=== PATIENT | male | born 1990 | race Caucasian/White ===

== ENCOUNTER 2018-05-21 06:47 | Observation (INO) | payer BC ==
[2018-05-21] MEDS ORDERED: Sodium Chloride 0.9% 1,000 ML IV ONE (07:00)
[2018-05-21] MEDS ORDERED: Ondansetron 4 MG/2 ML SDV IVPUSH ONE ×2 (07:00→09:55)
--- NOTE | 2018-05-21 07:01 | EDM.PDOC ---
ED HPI GENERAL MEDICAL PROBLEM - General Chief Complaint: Abdominal Pain Stated Complaint: STOMACH PAINS Time Seen by Provider: 05/21/18 07:01 Source of Information: Reports: Patient - History of Present Illness INITIAL COMMENTS - FREE TEXT/NARRATIVE: HISTORY AND PHYSICAL: History of present illness: [Patient presents with right lower quadrant pain 6 out of 10 nonradiating no fever vomiting chills sweats ] Review of systems: As per history of present illness and below otherwise all systems reviewed and negative. Past medical history: As per history of present illness and as reviewed below otherwise noncontributory. Surgical history: As per history of present illness and as reviewed below otherwise noncontributory. Social history: No reported history of drug or alcohol abuse. Family history: As per history of present illness and as reviewed below otherwise noncontributory. Physical exam: HEENT: Atraumatic, normocephalic, pupils reactive, negative for conjunctival pallor or scleral icterus, mucous membranes moist, throat clear, neck supple, nontender, trachea midline. Lungs: Clear to auscultation, breath sounds equal bilaterally, chest nontender. Heart: S1S2, regular, negative for clicks, rubs, or JVD. Abdomen: Soft, nondistendtender in right lower quadrant with guarding and rebound for masses or hepatosplenomegaly. Negative for costovertebral tenderness. Pelvis: Stable nontender. Genitourinary: Deferred. Rectal: Deferred. Extremities: Atraumatic, negative for cords or calf pain. Neurovascular unremarkable. Neuro: Awake, alert, oriented. Cranial nerves II through XII unremarkable. Cerebellum unremarkable. Motor and sensory unremarkable throughout. Exam nonfocal. Diagnostics: [CBC CMP UA lipase ] Therapeutics: [Liter normal saline bolus Zofran 8 mg IV ] Dr. Lazar is platform operations director and will be done see the patient shortly Impression: Acute appendicitis definitive disposition and diagnosis as appropriate pending reevaluation and review of above. Abdomen Pain Score (Numeric/FACES): 6 - Related Data Allergies Allergy/AdvReac Type Severity Reaction Status Date / Time No Known Allergies Allergy Verified 05/21/18 06:59 Home Meds: Home Meds . [No Known Home Meds] 05/21/18 [History] ED ROS GENERAL - Review of Systems Review Of Systems: See Below ED EXAM, GENERAL - Physical Exam Exam: See Below Course - Vital Signs Last Recorded V/S: Last Vital Signs Temp 97.4 F 05/21/18 07:00 Pulse 69 05/21/18 07:00 Resp 18 05/21/18 07:00 BP 114/69 05/21/18 07:00 Pulse Ox 98 05/21/18 07:00 - Orders/Labs/Meds Orders: Active Orders 24 hr Category Date Time Status UA W/MICROSCOPIC [URIN] Stat Lab 05/21/18 09:00 Ordered Labs: Laboratory Tests 05/21/18 05/21/18 Range/Units 07:10 07:10 WBC 15.70 H (4.0-11.0) K/uL RBC 5.17 (4.50-5.90) M/uL Hgb 15.5 (13.0-17.0) g/dL Hct 44.1 (38.0-50.0) % MCV 85.3 (80.0-98.0) fL MCH 30.0 (27.0-32.0) pg MCHC 35.1 (31.0-37.0) g/dL RDW Std Deviation 39.1 (28.0-62.0) fl RDW Coeff of Sabino 13 (11.0-15.0) % Plt Count 218 (150-400) K/uL MPV 11.60 (7.40-12.00) fL Neut % (Auto) 73.5 (48.0-80.0) % Lymph % (Auto) 19.6 (16.0-40.0) % [place] % (Auto) 6.4 (0.0-15.0) % Eos % (Auto) 0.3 (0.0-7.0) % Baso % (Auto) 0.2 (0.0-1.5) % Neut # (Auto) 11.6 H (1.4-5.7) K/uL Lymph # (Auto) 3.1 H (0.6-2.4) K/uL [place] # (Auto) 1.0 H (0.0-0.8) K/uL Eos # (Auto) 0.0 (0.0-0.7) K/uL Baso # (Auto) 0.0 (0.0-0.1) K/uL Nucleated RBC % 0.0 /100WBC Nucleated RBCs # 0 K/uL Sodium 139 (136-148) mmol/L Potassium 3.5 (3.5-5.1) mmol/L Chloride 102 (98-107) mmol/L Carbon Dioxide 26.4 (21.0-32.0) mmol/L BUN 18 (7.0-18.0) mg/dL Creatinine 1.0 (0.8-1.3) mg/dL Est Cr Clr Drug Dosing 106.40 mL/min Estimated GFR (MDRD) > 60.0 ml/min Glucose 120 H (74-106) mg/dL Calcium 9.3 (8.5-10.1) mg/dL Total Bilirubin 1.0 (0.2-1.0) mg/dL AST 16 (15-37) IU/L ALT 39 (14-63) IU/L Alkaline Phosphatase 81 (46-116) U/L Total Protein 7.5 (6.4-8.2) g/dL Albumin 4.6 (3.4-5.0) g/dL Globulin 2.9 (2.0-3.5) g/dL Albumin/Globulin Ratio 1.6 (1.3-2.8) Lipase 96 (73-393) U/L Meds: Medications Discontinued Medications Generic Name Dose Route Start Last Admin Trade Name Freq PRN Reason Stop Dose Admin Sodium Chloride 1,000 mls @ 999 mls/hr 05/21/18 07:00 05/21/18 07:30 Normal Saline IV 05/21/18 08:00 999 mls/hr STAT ONE Administration Iopamidol 100 ml 05/21/18 08:26 05/21/18 08:26 Isovue Multipack-370 (76%) IVPUSH 05/21/18 08:27 100 ml ONETIME STA Administration Morphine Sulfate 2 mg 05/21/18 07:42 05/21/18 07:55 Morphine IVPUSH 05/21/18 07:43 2 mg ONETIME ONE Administration Morphine Sulfate 4 mg 05/21/18 09:06 Morphine IVPUSH 05/21/18 09:07 ONETIME ONE Ondansetron HCl 8 mg 05/21/18 07:00 05/21/18 07:30 Zofran IVPUSH 05/21/18 07:01 8 mg ONETIME ONE Administration Departure - Departure Time of Disposition: 09:11 Disposition: Refer to Observation Condition: Fair Clinical Impression: Appendicitis - Discharge Information Referrals: PCP,None [Primary Care Provider] - Forms: ED Department Discharge - My Orders Last 24 Hours: My Active Orders 05/21/18 09:00 UA W/MICROSCOPIC [URIN] Stat - Assessment/Plan Last 24 Hours: My Active Orders 05/21/18 09:00 UA W/MICROSCOPIC [URIN] Stat
[2018-05-21] MEDS ORDERED: Morphine 2 MG/ML Syringe IVPUSH ONE ×2 (07:42→09:22)
[2018-05-21 07:48] LABS: CHLORIDE,CL 102 mmol/L (98-107); SODIUM,NA 139 mmol/L (136-148)
[2018-05-21] MEDS ORDERED: Iopamidol 755 MG/ML 500 ML Multipack Bottle IVPUSH STA (08:26)
--- NOTE | 2018-05-21 09:05 | CT ---
CT of the abdomen and pelvis with contrast. HISTORY: Pain TECHNIQUE: Axial CT images were obtained of the abdomen and pelvis following administration of 100 mL of Isovue-370 in the right antecubital fossa without complication. Coronal and sagittal reconstructi ons obtained. FINDINGS: The lung bases are clear, no pleural effusion. The liver, spleen, adrenal glands, and pancreas appear normal. The gallbladder is normal. There is no bulky retroperitoneal lymphadenopathy or abdominal ascites. The kidneys enhance and function symmetrically without evidence of obstructive uropathy. The large and small bowel are normal in caliber without evidence of obstruction. No focal pericolonic inflammation or stranding. The appendix is dilated with adjacent stranding. No free air identified. The urinary bladder is normal. No bulky pelvic lymphadenopathy or significant free pelvic fluid. Visualized osseous structures appear normal. IMPRESSION: 1. Appendicitis without evidence of rupture.
[2018-05-21] MEDS ORDERED: Morphine 4 MG/ML Syringe IVPUSH ONE (09:06)
[2018-05-21] MEDS ORDERED: Morphine 2 MG/ML Syringe ONE (09:21)
[2018-05-21] MEDS ORDERED: Sodium Chloride 0.9% 1,000 ML IV SCH (09:30)
[2018-05-21] MEDS ORDERED: cefOXitin 2 GM in Premix Bag 1 BAG IV ONE (09:39)
[2018-05-21] MEDS ORDERED: Ondansetron 4 MG/2 ML SDV ONE (09:53)
[2018-05-21] MEDS ORDERED: Propofol 200 MG/20 ML SDV ONE (09:53)
[2018-05-21] MEDS ORDERED: Lidocaine 2% 5 ML SDV ONE (09:53)
[2018-05-21] MEDS ORDERED: Rocuronium 10 MG/ML 10 ML Syringe ONE (09:53)
[2018-05-21] MEDS ORDERED: Succinylcholine 200 MG/10 ML MDV ONE (09:53)
[2018-05-21] MEDS ORDERED: Midazolam 1 MG/ML 2 ML SDV ONE (09:54)
[2018-05-21] MEDS ORDERED: fentaNYL 250 MCG/5 ML SDV ONE (09:54)
[2018-05-21] MEDS ORDERED: ceFAZolin 1 GM Vial ONE (09:58)
[2018-05-21] MEDS ORDERED: Bupivacaine 0.5% 10 ML SDV ONE (09:58)
--- NOTE | 2018-05-21 09:58 | PCM.CONS ---
<Kal Campa - Last Filed: 05/21/18 09:53> H&P History of Present Illness - General Date of Service: 05/21/18 Admit Problem/Dx: abdominal pain, acute appendicitis Source of Information: Patient History Limitations: Reports: No Limitations - History of Present Illness Initial Comments - Free Text/Narative: Patient started having abdominal pain around 0200 this morning (8hrs ago). It was associated with diarrhea and nausea. He forced himself to vomit. The pain was located in the middle of the abdomen and then moved to the right side. He presented to the ED where he was found to have a leukocytosis to 15.[address] evidence of acute appendicitis. Surgery was consulted. The patient recalls that he has had similar symptoms before but never this bad. He denies any major health problems but has been short of breath at times recently. Underwent an ORIF of the left forearm several years ago. Did not report problems with anesthesia. No prior abdominal surgery. His last meal was around midnight. He drinks socially. No tobacco use. He does not report taking any regular medications. Onset of Symptoms: Reports: Today Symptom Onset Date: 05/21/18 Symptom Onset Time: 02:00 Duration of Symptoms: Reports: Getting Worse Location: Reports: Abdomen Improves with: Reports: Rest Worsens with: Reports: Movement Associated Symptoms: Reports: Nausea/Vomiting, Other (diarrhea) Abdomen Pain Score (Numeric/FACES): 6 - Related Data Allergies/Adverse Reactions: Allergies Allergy/AdvReac Type Severity Reaction Status Date / Time No Known Allergies Allergy Verified 05/21/18 06:59 Home Medications: Home Meds . [No Known Home Meds] 05/21/18 [History] Past Medical History HEENT History: Reports: None Cardiovascular History: Reports: None Respiratory History: Reports: None Gastrointestinal History: Reports: None Genitourinary History: Reports: None Musculoskeletal History: Reports: None Neurological History: Reports: None Psychiatric History: Reports: None Endocrine/Metabolic History: Reports: None Hematologic History: Reports: None Immunologic History: Reports: None Oncologic (Cancer) History: Reports: None Dermatologic History: Reports: None - Infectious Disease History Infectious Disease History: Reports: None - Past Surgical History Musculoskeletal Surgical History: Reports: Other (See Below) Other Musculoskeletal Surgeries/Procedures:: left hand surgery Social & Family History - Family History Family Medical History: Noncontributory - Tobacco Use Smoking Status *Q: Never Smoker - Caffeine Use Caffeine Use: Reports: Coffee - Recreational Drug Use Recreational Drug Use: No H&P Review of Systems - Review of Systems: Review Of Systems: See Below General: Reports: Malaise HEENT: Reports: No Symptoms Pulmonary: Reports: Shortness of Breath Cardiovascular: Reports: No Symptoms, Other. Denies: Blood Pressure Problem (.) Gastrointestinal: Reports: Abdominal Pain, Diarrhea, Nausea Genitourinary: Reports: No Symptoms Musculoskeletal: Reports: No Symptoms Skin: Reports: No Symptoms Psychiatric: Reports: No Symptoms Neurological: Reports: No Symptoms Hematologic/Lymphatic: Reports: No Symptoms Immunologic: Reports: No Symptoms Review of Systems Comment:: . Exam - Exam Exam: See Below - Vital Signs Vital Signs: Last Vital Signs Temp 97.4 F 05/21/18 07:00 Pulse 69 05/21/18 07:00 Resp 18 05/21/18 07:00 BP 114/69 05/21/18 07:00 Pulse Ox 98 05/21/18 07:00 Weight: 212 lb - Exam General: Alert, Oriented HEENT: Conjunctiva Clear, Hearing Intact Neck: Supple, Trachea Midline Lungs: Clear to Auscultation, Normal Respiratory Effort Cardiovascular: Regular Rate, Regular Rhythm GI/Abdominal Exam: Tender (Male) Exam: Deferred Rectal (Males) Exam: Deferred Back Exam: Full Range of Motion Extremities: Non-Tender, Normal Capillary Refill Peripheral Pulses: 2+: Radial (L), Radial (R) Skin: Warm, Dry Neurological: Normal Speech, Sensation Intact Neuro Extensive - Mental Status: Alert, Oriented x3 Neuro Extensive - Motor, Sensory, Reflexes: CN II-XII Intact Psychiatric: Alert, Normal Affect, Normal Mood - Patient Data Lab Results Last 24 hrs: Laboratory Results - last 24 hr 05/21/18 05/21/18 05/21/18 Range/Units 07:10 07:10 09:00 WBC 15.70 H (4.0-11.0) K/uL RBC 5.17 (4.50-5.90) M/uL Hgb 15.5 (13.0-17.0) g/dL Hct 44.1 (38.0-50.0) % MCV 85.3 (80.0-98.0) fL MCH 30.0 (27.0-32.0) pg MCHC 35.1 (31.0-37.0) g/dL RDW Std Deviation 39.1 (28.0-62.0) fl RDW Coeff of Sabino 13 (11.0-15.0) % Plt Count 218 (150-400) K/uL MPV 11.60 (7.40-12.00) fL Neut % (Auto) 73.5 (48.0-80.0) % Lymph % (Auto) 19.6 (16.0-40.0) % [place] % (Auto) 6.4 (0.0-15.0) % Eos % (Auto) 0.3 (0.0-7.0) % Baso % (Auto) 0.2 (0.0-1.5) % Neut # (Auto) 11.6 H (1.4-5.7) K/uL Lymph # (Auto) 3.1 H (0.6-2.4) K/uL Rich # (Auto) 1.0 H (0.0-0.8) K/uL Eos # (Auto) 0.0 (0.0-0.7) K/uL Baso # (Auto) 0.0 (0.0-0.1) K/uL Nucleated RBC % 0.0 /100WBC Nucleated RBCs # 0 K/uL Sodium 139 (136-148) mmol/L Potassium 3.5 (3.5-5.1) mmol/L Chloride 102 (98-107) mmol/L Carbon Dioxide 26.4 (21.0-32.0) mmol/L BUN 18 (7.0-18.0) mg/dL Creatinine 1.0 (0.8-1.3) mg/dL Est Cr Clr Drug Dosing 106.40 mL/min Estimated GFR (MDRD) > 60.0 ml/min Glucose 120 H (74-106) mg/dL Calcium 9.3 (8.5-10.1) mg/dL Total Bilirubin 1.0 (0.2-1.0) mg/dL AST 16 (15-37) IU/L ALT 39 (14-63) IU/L Alkaline Phosphatase 81 (46-116) U/L Total Protein 7.5 (6.4-8.2) g/dL Albumin 4.6 (3.4-5.0) g/dL Globulin 2.9 (2.0-3.5) g/dL Albumin/Globulin Ratio 1.6 (1.3-2.8) Lipase 96 (73-393) U/L Urine Color YELLOW Urine Appearance CLEAR Urine pH 8.0 (5.0-8.0) Ur Specific Guild 1.015 (1.001-1.035) Urine Protein NEGATIVE (NEGATIVE) mg/dL Urine Glucose (UA) NEGATIVE (NEGATIVE) mg/dL Urine Ketones TRACE H (NEGATIVE) mg/dL Urine Occult Blood NEGATIVE (NEGATIVE) Urine Nitrite NEGATIVE (NEGATIVE) Urine Bilirubin NEGATIVE (NEGATIVE) Urine Urobilinogen 0.2 (<2.0) EU/dL Ur Leukocyte Esterase NEGATIVE (NEGATIVE) Urine RBC 0-1 (0-2/HPF) Urine WBC 0-1 (0-5/HPF) Ur Epithelial Cells RARE (NONE-FEW) Urine Bacteria RARE (NEGATIVE) Result Diagrams: 05/21/18 07:10 05/21/18 07:10 Imaging Impressions Last 24 hrs: CT abdomen/pelvis showed an inflamed appendix with no evidence of perforation. Consult PN Assessment/Plan (1) Appendicitis SNOMED Code(s): 37332560 Code(s): K37 - UNSPECIFIED APPENDICITIS Current Visit: Yes Qualifiers: Appendicitis type: acute appendicitis Problem List Initiated/Reviewed/Updated: Yes Plan: ASSESSMENT: 27 y/o male, otherwise healthy, who presents with acute appendicitis. PLAN: Discussed recommendations for laparoscopic, possible open, appendectomy for definitive treatment. Patient agreed to proceed. Discussed risks of bleeding, infection, bladder injury, possible need to convert to open procedure. Administer 2 g of cefoxitin in the ED Pain medications per ED once informed consent is signed. Patient agreed to be full code. Anticipate discharge to home tomorrow. <Michael Lazar - Last Filed: 05/21/18 10:24> H&P History of Present Illness - General Admit Problem/Dx: Admission Diagnosis/Problem Admission Diagnosis/Problem Appendicitis Exam - Vital Signs Vital Signs: Last Vital Signs Temp 97.4 F 05/21/18 07:00 Pulse 69 05/21/18 07:00 Resp 18 05/21/18 10:19 BP 114/69 05/21/18 07:00 Pulse Ox 98 05/21/18 10:19 - Exam GI/Abdominal Exam: Soft, No Distention, Rebound, Abnormal Bowel Sounds ( hypoactive). No: Guarding, Rigid - Patient Data Lab Results Last 24 hrs: Laboratory Results - last 24 hr 05/21/18 05/21/18 05/21/18 Range/Units 07:10 07:10 09:00 WBC 15.70 H (4.0-11.0) K/uL RBC 5.17 (4.50-5.90) M/uL Hgb 15.5 (13.0-17.0) g/dL Hct 44.1 (38.0-50.0) % MCV 85.3 (80.0-98.0) fL MCH 30.0 (27.0-32.0) pg MCHC 35.1 (31.0-37.0) g/dL RDW Std Deviation 39.1 (28.0-62.0) fl RDW Coeff of Sabino 13 (11.0-15.0) % Plt Count 218 (150-400) K/uL MPV 11.60 (7.40-12.00) fL Neut % (Auto) 73.5 (48.0-80.0) % Lymph % (Auto) 19.6 (16.0-40.0) % Rich % (Auto) 6.4 (0.0-15.0) % Eos % (Auto) 0.3 (0.0-7.0) % Baso % (Auto) 0.2 (0.0-1.5) % Neut # (Auto) 11.6 H (1.4-5.7) K/uL Lymph # (Auto) 3.1 H (0.6-2.4) K/uL [place] # (Auto) 1.0 H (0.0-0.8) K/uL Eos # (Auto) 0.0 (0.0-0.7) K/uL Baso # (Auto) 0.0 (0.0-0.1) K/uL Nucleated RBC % 0.0 /100WBC Nucleated RBCs # 0 K/uL Sodium 139 (136-148) mmol/L Potassium 3.5 (3.5-5.1) mmol/L Chloride 102 (98-107) mmol/L Carbon Dioxide 26.4 (21.0-32.0) mmol/L BUN 18 (7.0-18.0) mg/dL Creatinine 1.0 (0.8-1.3) mg/dL Est Cr Clr Drug Dosing 106.40 mL/min Estimated GFR (MDRD) > 60.0 ml/min Glucose 120 H (74-106) mg/dL Calcium 9.3 (8.5-10.1) mg/dL Total Bilirubin 1.0 (0.2-1.0) mg/dL AST 16 (15-37) IU/L ALT 39 (14-63) IU/L Alkaline Phosphatase 81 (46-116) U/L Total Protein 7.5 (6.4-8.2) g/dL Albumin 4.6 (3.4-5.0) g/dL Globulin 2.9 (2.0-3.5) g/dL Albumin/Globulin Ratio 1.6 (1.3-2.8) Lipase 96 (73-393) U/L Urine Color YELLOW Urine Appearance CLEAR Urine pH 8.0 (5.0-8.0) Ur Specific [place] 1.015 (1.001-1.035) Urine Protein NEGATIVE (NEGATIVE) mg/dL Urine Glucose (UA) NEGATIVE (NEGATIVE) mg/dL Urine Ketones TRACE H (NEGATIVE) mg/dL Urine Occult Blood NEGATIVE (NEGATIVE) Urine Nitrite NEGATIVE (NEGATIVE) Urine Bilirubin NEGATIVE (NEGATIVE) Urine Urobilinogen 0.2 (<2.0) EU/dL Ur Leukocyte Esterase NEGATIVE (NEGATIVE) Urine RBC 0-1 (0-2/HPF) Urine WBC 0-1 (0-5/HPF) Ur Epithelial Cells RARE (NONE-FEW) Urine Bacteria RARE (NEGATIVE) Result Diagrams: 05/21/18 07:10 05/21/18 07:10 Consult PN Assessment/Plan (1) Appendicitis SNOMED Code(s): 49402277 Code(s): K37 - UNSPECIFIED APPENDICITIS Current Visit: Yes Qualifiers: Appendicitis type: acute appendicitis Acute appendicitis type: with localized peritonitis Qualified Code(s): K35.3 - Acute appendicitis with localized peritonitis Problem List Initiated/Reviewed/Updated: Yes My Orders Last 24 Hours: My Active Orders 05/21/18 09:56 Insert Urinary Catheter [OM.PC] Timed Oxygen Therapy [RC] ASDIRECTED RT Incentive Spirometry [RC] Q1HWA Skin Preparation [RC] .PREOP Urinary Catheter Assessment [RC] ASDIRECTED Urinary Catheter Assessment [RC] ASDIRECTED Urinary Catheter Assessment [RC] ASDIRECTED Vital Signs [RC] PER UNIT ROUTINE Antiembolic Hose [OM.PC] Routine Resuscitation Status Routine 05/21/18 09:57 Patient Status [ADT] Routine 05/21/18 10:00 Lactated Ringers [Ringers, Lactated] 1,000 ml IV ASDIRECTED 05/21/18 Breakfast Nothing Per Oral Diet [DIET] Plan: Laparoscopic appendectomy, possible open appendectomy. Both operative procedures, along with the risks, including, but not limited to, bleeding, infection, pneumonia, deep venous thrombosis, pulmonary emboli, myocardial infarction, and adjacent organ injury have been reviewed with the patient who voices understanding, offers no questions and agrees to proceed.
--- NOTE | 2018-05-21 10:19 | PCM.PREANE ---
Preanesthetic Assessment - Procedure Proposed Procedure: Lap Appendectomy - Anesthesia/Transfusion/Family Hx Anesthesia History: Unknown Family History of Anesthesia Reaction: No Intubation History: Unknown - Review of Systems General: Chills Pulmonary: No Symptoms Cardiovascular: No Symptoms Gastrointestinal: Abdominal Pain, Nausea (all yesterday - no appetite) Neurological: No Symptoms Other: Reports: None - Physical Assessment NPO Status Date: 05/20/18 NPO Status Time: 12:00 O2 Sat by Pulse Oximetry: 98 Respiratory Rate: 18 Vital Signs: Last Vital Signs Temp 97.4 F 05/21/18 07:00 Pulse 69 05/21/18 07:00 Resp 18 05/21/18 07:00 BP 114/69 05/21/18 07:00 Pulse Ox 98 05/21/18 07:00 Height: 5 ft 8 in Weight: 212 lb ASA Class: 2E Mental Status: Alert & Oriented x3 Airway Class: Mallampati = 1 Dentition: Reports: Normal Dentition Thyro-Mental Finger Breadths: 3 Mouth Opening Finger Breadths: 3 ROM/Head Extension: Full Lungs: Clear to Auscultation, Normal Respiratory Effort Cardiovascular: Regular Rate, Regular Rhythm, No Murmurs Other: 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) - Lab Values: Laboratory Last Values WBC 15.70 K/uL (4.0-11.0) H 05/21/18 07:10 RBC 5.17 M/uL (4.50-5.90) 05/21/18 07:10 Hgb 15.5 g/dL (13.0-17.0) 05/21/18 07:10 Hct 44.1 % (38.0-50.0) 05/21/18 07:10 MCV 85.3 fL (80.0-98.0) 05/21/18 07:10 MCH 30.0 pg (27.0-32.0) 05/21/18 07:10 MCHC 35.1 g/dL (31.0-37.0) 05/21/18 07:10 RDW Std Deviation 39.1 fl (28.0-62.0) 05/21/18 07:10 RDW Coeff of Sabino 13 % (11.0-15.0) 05/21/18 07:10 Plt Count 218 K/uL (150-400) 05/21/18 07:10 MPV 11.60 fL (7.40-12.00) 05/21/18 07:10 Neut % (Auto) 73.5 % (48.0-80.0) 05/21/18 07:10 Lymph % (Auto) 19.6 % (16.0-40.0) 05/21/18 07:10 [place] % (Auto) 6.4 % (0.0-15.0) 05/21/18 07:10 Eos % (Auto) 0.3 % (0.0-7.0) 05/21/18 07:10 Baso % (Auto) 0.2 % (0.0-1.5) 05/21/18 07:10 Neut # (Auto) 11.6 K/uL (1.4-5.7) H 05/21/18 07:10 Lymph # (Auto) 3.1 K/uL (0.6-2.4) H 05/21/18 07:10 [place] # (Auto) 1.0 K/uL (0.0-0.8) H 05/21/18 07:10 Eos # (Auto) 0.0 K/uL (0.0-0.7) 05/21/18 07:10 Baso # (Auto) 0.0 K/uL (0.0-0.1) 05/21/18 07:10 Nucleated RBC % 0.0 /100WBC 05/21/18 07:10 Nucleated RBCs # 0 K/uL 05/21/18 07:10 Sodium 139 mmol/L (136-148) 05/21/18 07:10 Potassium 3.5 mmol/L (3.5-5.1) 05/21/18 07:10 Chloride 102 mmol/L (98-107) 05/21/18 07:10 Carbon Dioxide 26.4 mmol/L (21.0-32.0) 05/21/18 07:10 BUN 18 mg/dL (7.0-18.0) 05/21/18 07:10 Creatinine 1.0 mg/dL (0.8-1.3) 05/21/18 07:10 Est Cr Clr Drug Dosing 106.40 mL/min 05/21/18 07:10 Estimated GFR (MDRD) > 60.0 ml/min 05/21/18 07:10 Glucose 120 mg/dL (74-106) H 05/21/18 07:10 Calcium 9.3 mg/dL (8.5-10.1) 05/21/18 07:10 Total Bilirubin 1.0 mg/dL (0.2-1.0) 05/21/18 07:10 AST 16 IU/L (15-37) 05/21/18 07:10 ALT 39 IU/L (14-63) 05/21/18 07:10 Alkaline Phosphatase 81 U/L (46-116) 05/21/18 07:10 Total Protein 7.5 g/dL (6.4-8.2) 05/21/18 07:10 Albumin 4.6 g/dL (3.4-5.0) 05/21/18 07:10 Globulin 2.9 g/dL (2.0-3.5) 05/21/18 07:10 Albumin/Globulin Ratio 1.6 (1.3-2.8) 05/21/18 07:10 Lipase 96 U/L (73-393) 05/21/18 07:10 Urine Color YELLOW 05/21/18 09:00 Urine Appearance CLEAR 05/21/18 09:00 Urine pH 8.0 (5.0-8.0) 05/21/18 09:00 Ur Specific [place] 1.015 (1.001-1.035) 05/21/18 09:00 Urine Protein NEGATIVE mg/dL (NEGATIVE) 05/21/18 09:00 Urine Glucose (UA) NEGATIVE mg/dL (NEGATIVE) 05/21/18 09:00 Urine Ketones TRACE mg/dL (NEGATIVE) H 05/21/18 09:00 Urine Occult Blood NEGATIVE (NEGATIVE) 05/21/18 09:00 Urine Nitrite NEGATIVE (NEGATIVE) 05/21/18 09:00 Urine Bilirubin NEGATIVE (NEGATIVE) 05/21/18 09:00 Urine Urobilinogen 0.2 EU/dL (<2.0) 05/21/18 09:00 Ur Leukocyte Esterase NEGATIVE (NEGATIVE) 05/21/18 09:00 Urine RBC 0-1 (0-2/HPF) 05/21/18 09:00 Urine WBC 0-1 (0-5/HPF) 05/21/18 09:00 Ur Epithelial Cells RARE (NONE-FEW) 05/21/18 09:00 Urine Bacteria RARE (NEGATIVE) 05/21/18 09:00 - Allergies Allergies/Adverse Reactions: Allergies Allergy/AdvReac Type Severity Reaction Status Date / Time No Known Allergies Allergy Verified 05/21/18 06:59 - Blood Blood Available: No Product(s) Available: None - Anesthesia Plan Pre-Op Medication Ordered: Other (MS narcotic in ER for pain) - Acknowledgements Anesthesia Type Planned: General Anesthesia (GETA) Pt an Appropriate Candidate for the Planned Anesthesia: Yes Alternatives and Risks of Anesthesia Discussed w Pt/Guardian: Yes Pt/Guardian Understands and Agrees with Anesthesia Plan: Yes PreAnesthesia Questionnaire HEENT History: Reports: None Cardiovascular History: Reports: None Respiratory History: Reports: None Gastrointestinal History: Reports: None Genitourinary History: Reports: None Musculoskeletal History: Reports: None Neurological History: Reports: None Psychiatric History: Reports: None Endocrine/Metabolic History: Reports: None Hematologic History: Reports: None Immunologic History: Reports: None Oncologic (Cancer) History: Reports: None Dermatologic History: Reports: None - Infectious Disease History Infectious Disease History: Reports: None - Past Surgical History Musculoskeletal Surgical History: Reports: Other (See Below) Other Musculoskeletal Surgeries/Procedures:: left hand surgery - SUBSTANCE USE Smoking Status *Q: Never Smoker Recreational Drug Use History: No - HOME MEDS Home Medications: Home Meds . [No Known Home Meds] 05/21/18 [History] - CURRENT (IN HOUSE) MEDS Current Meds: Current Medications Sodium Chloride (Normal Saline) 1,000 mls @ 125 mls/hr IV STAT [facility] Last Admin: 05/21/18 10:00 Dose: 125 mls/hr Lactated Ringer's (Ringers, Lactated) 1,000 mls @ 125 mls/hr IV ASDIRECTED [facility] Discontinued Medications Bupivacaine HCl (Sensorcaine-Mpf 0.5%) Confirm Administered Dose 10 ml .ROUTE .STK-MED ONE Stop: 05/21/18 09:59 Cefazolin Sodium (Ancef) Confirm Administered Dose 1 gm .ROUTE .STK-MED ONE Stop: 05/21/18 09:59 Fentanyl (Sublimaze) Confirm Administered Dose 250 mcg .ROUTE .STK-MED ONE Stop: 05/21/18 09:55 Sodium Chloride (Normal Saline) 1,000 mls @ 999 mls/hr IV STAT ONE Stop: 05/21/18 08:00 Last Admin: 05/21/18 07:30 Dose: 999 mls/hr Cefoxitin Sodium 2 gm/ Premix 50 mls @ 100 mls/hr IV ONETIME ONE Stop: 05/21/18 10:08 Last Admin: 05/21/18 09:53 Dose: 100 mls/hr Iopamidol (Isovue Multipack-370 (76%)) 100 ml IVPUSH ONETIME STA Stop: 05/21/18 08:27 Last Admin: 05/21/18 08:26 Dose: 100 ml Lidocaine (Xylocaine-Mpf 2%) Confirm Administered Dose 5 ml .ROUTE .STK-MED ONE Stop: 05/21/18 09:54 Midazolam HCl (Versed 1 Mg/Ml) Confirm Administered Dose 2 mg .ROUTE .STK-MED ONE Stop: 05/21/18 09:55 Morphine Sulfate (Morphine) 2 mg IVPUSH ONETIME ONE Stop: 05/21/18 07:43 Last Admin: 05/21/18 07:55 Dose: 2 mg Morphine Sulfate (Morphine) 4 mg IVPUSH ONETIME ONE Stop: 05/21/18 09:07 Last Admin: 05/21/18 09:22 Dose: Not Given Morphine Sulfate (Morphine) 4 mg IVPUSH ONETIME ONE Stop: 05/21/18 09:23 Last Admin: 05/21/18 09:24 Dose: 4 mg Morphine Sulfate (Morphine) Confirm Administered Dose 4 mg .ROUTE .STK-MED ONE Stop: 05/21/18 09:22 Last Admin: 05/21/18 09:24 Dose: Not Given Ondansetron HCl (Zofran) 8 mg IVPUSH ONETIME ONE Stop: 05/21/18 07:01 Last Admin: 05/21/18 07:30 Dose: 8 mg Ondansetron HCl (Zofran) 4 mg IVPUSH ONETIME ONE Stop: 05/21/18 09:56 Last Admin: 05/21/18 09:59 Dose: 4 mg Ondansetron HCl (Zofran) Confirm Administered Dose 4 mg .ROUTE .STK-MED ONE Stop: 05/21/18 09:54 Propofol (Diprivan 20 Ml) Confirm Administered Dose 200 mg .ROUTE .STK-MED ONE Stop: 05/21/18 09:54 Rocuronium [place] (Zemuron) Confirm Administered Dose 100 mg .ROUTE .STK-MED ONE Stop: 05/21/18 09:54 Succinylcholine Chloride (Quelicin) Confirm Administered Dose 200 mg .ROUTE .STK -MED ONE Stop: 05/21/18 09:54
[2018-05-21] MEDS ORDERED: Glycopyrrolate 0.2 MG/ML SDV ONE ×2 (10:50→10:52)
[2018-05-21] MEDS ORDERED: ePHEDrine 50 MG/ML SDV ONE (10:54)
[2018-05-21] MEDS ORDERED: fentaNYL 100 MCG/2 ML SDV IVPUSH PRN (11:09)
[2018-05-21] MEDS ORDERED: fentaNYL 100 MCG/2 ML SDV ONE (11:14)
[2018-05-21] MEDS ORDERED: HYDROmorphone 2 MG/ML SDV ONE (11:33)
[2018-05-21] MEDS ORDERED: Sodium Chloride 0.9% 10 ML Syringe FLUSH PRN (11:47)
[2018-05-21] MEDS ORDERED: Sodium Chloride 0.9% 2.5 ML Syringe FLUSH PRN (11:47)
[2018-05-21] MEDS ORDERED: Morphine 4 MG/ML Syringe IVPUSH PRN (11:47)
[2018-05-21] MEDS ORDERED: Ondansetron 4 MG/2 ML SDV IVPUSH PRN (11:47)
--- NOTE | 2018-05-21 11:49 | PCM.OPNOTE ---
- General Post-Op/Procedure Note Date of Surgery/Procedure: 05/21/18 Operative Procedure(s): Laparoscopic appendectomy Pre Op Diagnosis: Acute abdomen Post-Op Diagnosis: Acute nonruptured retrocecal appendicitis Anesthesia Technique: General ET Tube (ASA IIE) Primary Surgeon: Michael Lazar Instrument Shop Supervisor: Kal Campa Fluid Replacement, Intraop: 1,100 EBL in mLs: 10 Condition: Good Free Text/Narrative:: DICTATION 146328 CPT CODE 88058
--- NOTE | 2018-05-21 12:47 | PCM.POSTAN ---
POST ANESTHESIA ASSESSMENT - MENTAL STATUS Mental Status: Alert, Oriented Free Text/Narrative:: states he feels much better than he did preop in ER when I saw him. To Rm 208. - RESPIRATORY Respiratory Status: Respiratory Rate WNL, Airway Patent, O2 Saturation Stable - CARDIOVASCULAR CV Status: Pulse Rate WNL, Blood Pressure Stable - GASTROINTESTINAL GI Status: No Symptoms - POST OP HYDRATION Hydration Status: Adequate & Stable
--- NOTE | 2018-05-21 13:18 | OR ---
SURGEON: Michael Lazar M.D. DATE OF PROCEDURE: 05/21/2018 OPERATION PERFORMED: Laparoscopic appendectomy. MANAGER BIOSTATISTICS: Dr. Golden, PGY2. ANESTHESIA: General endotracheal. ASA CLASSIFICATION: IIE. PREOPERATIVE DIAGNOSIS: Acute abdomen. POSTOPERATIVE DIAGNOSIS: Acute nonruptured retrocecal appendicitis. ESTIMATED BLOOD LOSS: 10 mL. INTRAOPERATIVE FLUID REPLACEMENT: 1100 mL of crystalloid. DESCRIPTION OF PROCEDURE: The patient was taken to the operating room and placed on the operating table in the supine position. Time-out was called for appropriate identification of the patient and procedure. Thigh-high TEDs and sequential compression boots were placed. Following satisfactory attainment of general endotracheal anesthesia, a Brooks catheter was placed in the patient's urinary bladder. The abdomen was prepped with DuraPrep solution and sterile drapes were applied. The skin incision just above the umbilicus was initially infiltrated with 0.5% Marcaine solution. The skin incision was made and deepened through the subcutaneous tissue obtaining hemostasis with the use of electrocautery. The Veress needle was introduced into the peritoneal cavity. Saline drop test was positive. Carbon dioxide pneumoperitoneum was established with the relief initially set at 13 cm of water and then increased to 15 cm of water. Once a satisfactory pneumoperitoneum was established, 5 mm camera and port were placed through the supraumbilical incision. Under camera vision, 12 mm suprapubic port was placed. The skin incision was preemptively infiltrated with 0.5% Marcaine solution. Hemostasis was obtained with the use of electrocautery. 12 mm port was placed through the suprapubic incision. The patient was now positioned with his head down and rolled to the left. Under camera vision, the appendix was examined and found to be in a retrocecal position. Appropriate site for the left lower quadrant port was identified. Again, the skin was infiltrated with 0.5% Marcaine solution. The skin incision was made and a 5 mm port was placed through this incision as well. The appendix was able to be gently mobilized and the mesoappendix was taken down with Harmonic scalpel. Once the appendix was completely mobilized, the appendix was ligated at its base using the Endo-ANNE-MARIE stapler with a blue load. The appendix was then placed in the retrieval bag. The right lower quadrant was then inspected for hemostasis. No bleeding was noted. The right lower quadrant was then irrigated with sterile saline solution and all fluid aspirated. The patient was now returned to a neutral position. Under camera vision, the 12 mm suprapubic port and retrieval pouch were removed. Under camera vision, the 5 mm left lower quadrant port was removed and finally the supraumbilical camera and port were removed. The wounds were inspected for hemostasis and small bleeding sites were electrocoagulated. The suprapubic and supraumbilical incisions were closed in 2 layers approximating the subcutaneous tissue with 3-0 Polysorb and the skin with subcuticular 4-0 Monocryl. The left lower quadrant incision was closed with subcuticular 4-0 Monocryl. All incisions were Steri-Stripped and dressed with sterile Tegaderm pads. Sponge, needle, and instrument counts were all correct. The Boroks catheter was removed prior to emergence from anesthesia. Following emergence from anesthesia and extubation, the patient was taken to recovery room in stable condition. NEGRO BROWNE /[id number]
--- NOTE | 2018-05-21 16:21 | PCM48HPAN ---
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 Saw him twice this PM.
--- NOTE | 2018-05-21 17:53 | PCM.SN ---
- Free Text/Narrative Note: Awake and alert. Feeling much better than before surgery. Abdomen is soft and nontender. Dressings with small amount of shadowing. ASSESSMENT: Patient is progressing well postop. Encourage activity and advance diet as he tolerates. Possible discharge tomorrow.
[2018-05-21] MEDS: Acetaminophen/HYDROcodone 325-5 MG Tab PO PRN ×2 (18:10→23:55)
[2018-05-21] MEDS: Lactated Ringers 1,000 ML IV SCH (19:22)
[2018-05-22] MEDS: Lactated Ringers 1,000 ML IV SCH (03:59)
--- NOTE | 2018-05-22 08:19 | PCM.SURGPN ---
- General Info Date of Service: 05/22/18 Date of Surgery/Procedure: 05/21/18 POD#: 1 Post-Op Diagnosis: Acute appendicitis Functional Status: Reports: Pain Controlled, Tolerating Diet - Review of Systems General: Denies: Fever, Weakness, Fatigue, Malaise, Chills HEENT: Reports: No Symptoms Pulmonary: Denies: Shortness of Breath, Cough Cardiovascular: Denies: Chest Pain Gastrointestinal: Reports: Flatus. Denies: Abdominal Pain, Constipation, Decreased Appetite, Diarrhea, Nausea, Vomiting Genitourinary: Denies: Dysuria, Frequency, Burning, Urgency Musculoskeletal: Reports: No Symptoms Skin: Reports: No Symptoms Neurological: Reports: No Symptoms Psychiatric: Reports: No Symptoms - Patient Data Vitals - Most Recent: Last Vital Signs Temp 98.6 F 05/22/18 04:00 Pulse 74 05/22/18 04:00 Resp 19 05/22/18 04:00 BP 125/85 05/22/18 04:00 Pulse Ox 90 L 05/22/18 04:00 Weight - Most Recent: 212 lb I&O - Last 24 Hours: Intake & Output 05/21/18 05/22/18 05/22/18 19:59 03:59 11:59 Intake Total 2074 600 Output Total 400 2700 Balance 1674 -2100 Lab Results Last 24 Hrs: Laboratory Results - last 24 hr 05/21/18 Range/Units 09:00 Urine Color YELLOW Urine Appearance CLEAR Urine pH 8.0 (5.0-8.0) Ur Specific [place] 1.015 (1.001-1.035) Urine Protein NEGATIVE (NEGATIVE) mg/dL Urine Glucose (UA) NEGATIVE (NEGATIVE) mg/dL Urine Ketones TRACE H (NEGATIVE) mg/dL Urine Occult Blood NEGATIVE (NEGATIVE) Urine Nitrite NEGATIVE (NEGATIVE) Urine Bilirubin NEGATIVE (NEGATIVE) Urine Urobilinogen 0.2 (<2.0) EU/dL Ur Leukocyte Esterase NEGATIVE (NEGATIVE) Urine RBC 0-1 (0-2/HPF) Urine WBC 0-1 (0-5/HPF) Ur Epithelial Cells RARE (NONE-FEW) Urine Bacteria RARE (NEGATIVE) Med Orders - Current: Current Medications Hydrocodone Bitart/Acetaminophen ([place] 325-5 Mg) 1 tab PO Q4H PRN PRN Reason: Pain Last Admin: 05/21/18 23:55 Dose: 1 tab Fentanyl (Sublimaze) 50 mcg IVPUSH Q5M PRN PRN Reason: Pain (severe 7-10) Stop: 05/22/18 11:09 Sodium Chloride (Normal Saline) 1,000 mls @ 125 mls/hr IV STAT [facility] Last Admin: 05/21/18 10:00 Dose: 125 mls/hr Lactated Ringer's (Ringers, Lactated) 1,000 mls @ 125 mls/hr IV ASDIRECTED [facility] Last Admin: 05/22/18 03:59 Dose: 125 mls/hr Morphine Sulfate (Morphine) 4 mg IVPUSH Q4H PRN PRN Reason: Pain Ondansetron HCl (Zofran) 4 mg IVPUSH Q4H PRN PRN Reason: Nausea Sodium Chloride (Saline Flush) 10 ml FLUSH ASDIRECTED PRN PRN Reason: Keep Vein Open Sodium Chloride (Saline Flush) 2.5 ml FLUSH ASDIRECTED PRN PRN Reason: Keep Vein Open Discontinued Medications Bupivacaine HCl (Sensorcaine-Mpf 0.5%) Confirm Administered Dose 10 ml .ROUTE .STK-MED ONE Stop: 05/21/18 09:59 Cefazolin Sodium (Ancef) Confirm Administered Dose 1 gm .ROUTE .STK-MED ONE Stop: 05/21/18 09:59 Ephedrine Sulfate (Ephedrine Sulfate) Confirm Administered Dose 50 mg .ROUTE .STK-MED ONE Stop: 05/21/18 10:55 Fentanyl (Sublimaze) Confirm Administered Dose 250 mcg .ROUTE .STK-MED ONE Stop: 05/21/18 09:55 Fentanyl (Sublimaze) Confirm Administered Dose 100 mcg .ROUTE .STK-MED ONE Stop: 05/21/18 11:15 Glycopyrrolate (Robinul) Confirm Administered Dose 0.2 mg .ROUTE .STK-MED ONE Stop: 05/21/18 10:51 Glycopyrrolate (Robinul) Confirm Administered Dose 0.2 mg .ROUTE .STK-MED ONE Stop: 05/21/18 10:53 Hydromorphone HCl (Dilaudid) Confirm Administered Dose 2 mg .ROUTE .STK-MED ONE Stop: 05/21/18 11:34 Sodium Chloride (Normal Saline) 1,000 mls @ 999 mls/hr IV STAT ONE Stop: 05/21/18 08:00 Last Admin: 05/21/18 07:30 Dose: 999 mls/hr Cefoxitin Sodium 2 gm/ Premix 50 mls @ 100 mls/hr IV ONETIME ONE Stop: 05/21/18 10:08 Last Admin: 05/21/18 09:53 Dose: 100 mls/hr Iopamidol (Isovue Multipack-370 (76%)) 100 ml IVPUSH ONETIME STA Stop: 05/21/18 08:27 Last Admin: 05/21/18 08:26 Dose: 100 ml Lidocaine (Xylocaine-Mpf 2%) Confirm Administered Dose 5 ml .ROUTE .STK-MED ONE Stop: 05/21/18 09:54 Midazolam HCl (Versed 1 Mg/Ml) Confirm Administered Dose 2 mg .ROUTE .STK-MED ONE Stop: 05/21/18 09:55 Morphine Sulfate (Morphine) 2 mg IVPUSH ONETIME ONE Stop: 05/21/18 07:43 Last Admin: 05/21/18 07:55 Dose: 2 mg Morphine Sulfate (Morphine) 4 mg IVPUSH ONETIME ONE Stop: 05/21/18 09:07 Last Admin: 05/21/18 09:22 Dose: Not Given Morphine Sulfate (Morphine) 4 mg IVPUSH ONETIME ONE Stop: 05/21/18 09:23 Last Admin: 05/21/18 09:24 Dose: 4 mg Morphine Sulfate (Morphine) Confirm Administered Dose 4 mg .ROUTE .STK-MED ONE Stop: 05/21/18 09:22 Last Admin: 05/21/18 09:24 Dose: Not Given Ondansetron HCl (Zofran) 8 mg IVPUSH ONETIME ONE Stop: 05/21/18 07:01 Last Admin: 05/21/18 07:30 Dose: 8 mg Ondansetron HCl (Zofran) 4 mg IVPUSH ONETIME ONE Stop: 05/21/18 09:56 Last Admin: 05/21/18 09:59 Dose: 4 mg Ondansetron HCl (Zofran) Confirm Administered Dose 4 mg .ROUTE .STK-MED ONE Stop: 05/21/18 09:54 Propofol (Diprivan 20 Ml) Confirm Administered Dose 200 mg .ROUTE .STK-MED ONE Stop: 05/21/18 09:54 Rocuronium [place] (Zemuron) Confirm Administered Dose 100 mg .ROUTE .STK-MED ONE Stop: 05/21/18 09:54 Succinylcholine Chloride (Quelicin) Confirm Administered Dose 200 mg .ROUTE .STK -MED ONE Stop: 05/21/18 09:54 - Exam Wound/Incisions: Dressing Dry and Intact General: Alert, Oriented, Cooperative, No Acute Distress HEENT: Pupils Equal, Pupils Reactive. No: Scleral Icterus Neck: Supple Lungs: Clear to Auscultation, Normal Respiratory Effort Cardiovascular: Regular Rate, Regular Rhythm GI/Abdominal Exam: Normal Bowel Sounds, Soft, Non-Tender, No Distention Extremities: Normal Inspection, Normal Range of Motion, Non-Tender Skin: Warm, Dry, Intact Neurological: No New Focal Deficit Psy/Mental Status: Alert, Normal Affect, Normal Mood - Problem List & Annotations (1) Appendicitis SNOMED Code(s): 61372821 Code(s): K37 - UNSPECIFIED APPENDICITIS Status: Acute Current Visit: Yes Qualifiers: Appendicitis type: acute appendicitis Acute appendicitis type: with localized peritonitis Qualified Code(s): K35.3 - Acute appendicitis with localized peritonitis - Problem List Review Problem List Initiated/Reviewed/Updated: Yes - My Orders Last 24 Hours: Active Orders 24 hr Category Date Time Status Patient Status [ADT] Routine ADT 05/21/18 09:57 Active Ambulate [RC] PER UNIT ROUTINE Care 05/21/18 11:47 Active Bladder Scan [RC] ASDIRECTED Care 05/21/18 11:49 Active Insert Urinary Catheter [OM.PC] Q24H Care 05/21/18 12:00 Ordered Insert Urinary Catheter [OM.PC] Timed Care 05/21/18 09:56 Ordered Oxygen Therapy [RC] ASDIRECTED Care 05/21/18 09:56 Active Pulse Oximetry [RC] ASDIRECTED Care 05/21/18 11:53 Active RT Incentive Spirometry [RC] Q1HWA Care 05/21/18 09:56 Active Skin Preparation [RC] .PREOP Care 05/21/18 09:56 Active Vital Signs [RC] PER UNIT ROUTINE Care 05/21/18 09:56 Active Regular Diet [DIET] Diet 05/21/18 Dinner Active UA W/MICROSCOPIC [URIN] Stat Lab 05/21/18 09:00 Ordered Acetaminophen/HYDROcodone [[place] 325-5 MG] Med 05/21/18 11:48 Active 1 tab PO Q4H PRN Lactated Ringers [Ringers, Lactated] 1,000 ml Med 05/21/18 10:00 Active IV ASDIRECTED Morphine Med 05/21/18 11:47 Active 4 mg IVPUSH Q4H PRN Ondansetron [Zofran] Med 05/21/18 11:47 Active 4 mg IVPUSH Q4H PRN Sodium Chloride 0.9% [Normal Saline] 1,000 ml Med 05/21/18 09:30 Active IV STAT Sodium Chloride 0.9% [Saline Flush] Med 05/21/18 11:47 Active 10 ml FLUSH ASDIRECTED PRN Sodium Chloride 0.9% [Saline Flush] Med 05/21/18 11:47 Active 2.5 ml FLUSH ASDIRECTED PRN fentaNYL [Sublimaze] Med 05/21/18 11:09 Active 50 mcg IVPUSH Q5M PRN Antiembolic Hose [OM.PC] Routine Oth 05/21/18 09:56 Ordered Resuscitation Status Routine Resus Stat 05/21/18 09:56 Ordered Medication Orders Hydrocodone Bitart/Acetaminophen ([place] 325-5 Mg) 1 tab PO Q4H PRN PRN Reason: Pain Last Admin: 05/21/18 23:55 Dose: 1 tab Admin: 05/21/18 18:10 Dose: 1 tab Fentanyl (Sublimaze) 50 mcg IVPUSH Q5M PRN PRN Reason: Pain (severe 7-10) Stop: 05/22/18 11:09 Sodium Chloride (Normal Saline) 1,000 mls @ 125 mls/hr IV STAT [facility] Last Admin: 05/21/18 10:00 Dose: 125 mls/hr Lactated Ringer's (Ringers, Lactated) 1,000 mls @ 125 mls/hr IV ASDIRECTED [facility] Last Admin: 05/22/18 03:59 Dose: 125 mls/hr Infusion: 05/22/18 03:22 Dose: 125 mls/hr Admin: 05/21/18 19:22 Dose: 125 mls/hr Morphine Sulfate (Morphine) 4 mg IVPUSH Q4H PRN PRN Reason: Pain Ondansetron HCl (Zofran) 4 mg IVPUSH Q4H PRN PRN Reason: Nausea Sodium Chloride (Saline Flush) 10 ml FLUSH ASDIRECTED PRN PRN Reason: Keep Vein Open Sodium Chloride (Saline Flush) 2.5 ml FLUSH ASDIRECTED PRN PRN Reason: Keep Vein Open - Assessment Assessment (Free Text/Narrative):: Much improved. Tolerating po diet. Wants to go home. - Plan Plan (Free Text/Narrative):: Discharge today. [place] 5/325 1/2-1 tab po q8h prn pain. Clinic 7-10 days.
[2018-05-22] MEDS: Acetaminophen/HYDROcodone 325-5 MG Tab PO PRN (08:46)
== END 2018-05-22 10:03 | disposition home or self-care (01) ==
LOC: MW.ED 06:47 → MW.MS 09:57
PROVIDERS: ADMIT Surgery; ATTEND Surgery
DX: K35.80 Unspecified acute appendicitis (principal)
CPT/HCPCS: 36415; 44970; 74177; 80053; 81001; 83690; 85025; 88304; 96361; 96365; 96375; 96376; 99285; A9270; J0330; J0694; J1170; J2250; J2270; J2405; J2704; J3010; J3490; J7040; J7120; Q9967; 99283; J0690